=== PATIENT | female | born 1965 | race African-American/Black ===

== ENCOUNTER 2016-12-29 09:18 | Emergency (ER) | payer OTHER ==
[2016-12-29] MEDS ORDERED: NITROGLYCERIN 0.4MG SL TABLET #25 BTL SL PRN (09:44)
[2016-12-29] MEDS ORDERED: ASPIRIN 81 MG CHEWABLE TABLET PO ONE (09:44)
[2016-12-29 10:15] LABS: EOS % 4.2 % (0-6); GRAN % 49.1 % (47-80); HEMATOCRIT 42.5 % (35.0-47.0); HEMOGLOBIN 14.3 gm/dl (11.6-16.0); LYMPH % 36.7 % (16-45); MEAN CORPUSCULAR HEMOGLOBIN 29.6 pg (27-33); MEAN CORPUSCULAR HGB CONC 33.6 g/dl (32-36); MEAN PLATELET VOLUME 10.8 fl (7.4-10.4); PLATELET COUNT 265 K/uL (130-400); RED BLOOD COUNT 4.83 M/uL (3.80-5.40); RED CELL DISTRIBUTION WIDTH 14.7 % (11.5-14.5)
[2016-12-29 10:29] LABS: ANION GAP 9.7 (7-16); BLOOD UREA NITROGEN 11 mg/dL (7-17); CARBON DIOXIDE 28.3 mmol/L (22-30); CREATINE PHOSPHOKINASE 81 U/L (30-135); CREATININE 0.8 mg/dL (0.52-1.04); EST GLOMERULAR FILTRATION RATE > 60 ml/min; GLUCOSE,RANDOM 97 mg/dL (70-110)
[2016-12-29 10:41] LABS: CKMB 0.2 ug/L (0-6); TROPONIN I < 0.012 ng/mL (0.00-0.034)
--- NOTE | 2016-12-29 11:08 | Emergency Department Record ---
History of Present Illness - General Chief Complaint: Chest Pain Stated Complaint: CHEST PAIN Time Seen by Provider: 12/29/16 09:44 Source: Patient Mode of Arrival: Ambulatory Limitations: No limitations - History of Present Illness Initial Comments: pt has been having chest pain for the last 9 days. the pain gets worse with inspiration. pt flies a lot. she also feels sob. no leg pain. pt was on 2 courses of abx recently for uri. Complaint: Chest pain Onset/Timin -: Days(s) Onset: Other Pain Location: Left chest Severity: Moderate Quality: Sharp Consistency: Constant Improves With: Nothing Worsens With: Inspiration Context: Recent travel [place] Symptoms: Dyspnea Other Symptoms: Cough Treatments Prior to Arrival: None - Related Data Allergies Allergy/AdvReac Type Severity Reaction Status Date / Time tramadol Allergy Severe NAUSEA AND Verified 12/29/16 09:26 VOMITING tree nuts Allergy Severe ANAPHYLAXIS Uncoded 12/29/16 09:26 Travel Screening - Travel/Exposure Within Last 30 Days Have you traveled within the last 30 days?: No - Travel/Exposure Within Last Year Have you traveled outside the [place] in the last year?: No - Additonal Travel Details Have you been exposed to anyone with a communicable illness?: No Review of Systems Reviewed: No additional complaints except as noted below Constitutional: Reports: As per HPI. Denies: Chills, Fever, Malaise, Night sweats, Weakness, Weight change Eyes: Reports: As per HPI. Denies: Eye discharge, Eye pain, Photophobia, Vision change ENT: Reports: As per HPI. Denies: Congestion, Dental pain, Ear pain, Epistaxis , Hearing loss, Throat pain Respiratory: Reports: As per HPI. Denies: Cough, Dyspnea, Hemoptysis, Stridor, Wheezes Cardiovascular: Reports: As per HPI. Denies: Arrhythmia, Chest pain, Dyspnea on exertion, Edema, Murmurs, Orthopnea, Palpitations, Paroxysmal nocturnal dyspnea, Rheumatic Fever, Syncope Endocrine: Reports: As per HPI. Denies: Fatigue, Heat or cold intolerance, Polydipsia, Polyuria Gastrointestinal: Reports: As per HPI. Denies: Abdominal pain, Constipation, Diarrhea, Hematemesis, Hematochezia, Melena, Nausea, Vomiting Genitourinary: Reports: As per HPI. Denies: Abnormal menses, Discharge, Dyspareunia, Dysuria, Frequency, Hematuria, Incontinence, Retention, Urgency Musculoskeletal: Reports: As per HPI. Denies: Arthralgia, Back pain, Gout, Joint swelling, Myalgia, Neck pain Skin: Reports: As per HPI. Denies: Bruising, Change in color, Change in hair/ nails, Lesions, Pruritus, Rash Neurological: Reports: As per HPI. Denies: Abnormal gait, Confusion, Headache, Numbness, Paresthesias, Seizure, Tingling, Tremors, Vertigo, Weakness Psychiatric: Reports: As per HPI. Denies: Anxiety, Auditory hallucinations, Depression, Homicidal thoughts, Suicidal thoughts, Visual hallucinations Hematological/Lymphatic: Reports: As per HPI. Denies: Anemia, Blood Clots, Easy bleeding, Easy bruising, Swollen glands Past Medical History - SOCIAL HISTORY Smoking Status: Never smoker Alcohol Use: Occassional Drug Use: None - RESPIRATORY Hx Respiratory Disorders: Yes Comment:: gets really bad reaction to cats(allergies)- - CARDIOVASCULAR Hx Cardio Disorders: Yes Hx Hypertension: Yes Hx Palpitations: Yes (anxiety related- wore holter monitor -ok results) - NEURO Hx Neuro Disorders: No - GI Hx GI Disorders: Yes Hx Wt Loss/Wt Gain: Yes (20 lbs diet & exercise) - Hx Genitourinary Disorders: No Comment:: hyst - ENDOCRINE Hx Endocrine Disorders: Yes Hx Thyroid Disease: Yes (nodules on thyroid) Comment:: Dr cortez & observing - MUSCULOSKELETAL Hx Musculoskeletal Disorders: Yes Comment:: torn rotator cuff March 2015 - PSYCH Hx Psych Problems: Yes Hx Anxiety: Yes Hx Depression: Yes - HEMATOLOGY/ONCOLOGY Hx Hematology/Oncology Disorders: Yes Hx Cancer: Yes (precancerous cells left breast) Family Medical History Any Significant Family History?: No Hx Cancer: Mother *Cancer Comment: breast Hx Diabetes: Mother Hx HTN: Mother Hx Resp Disorders: Mother Physical Exam - General General Appearance: Alert, Oriented x3, Cooperative, Mild distress - Head Head exam: Normal inspection - Eye Eye exam: Normal appearance, PERRL, EOMI Pupils: Normal accommodation - ENT ENT exam: Normal exam, Mucous membranes moist, Normal external ear exam, Normal orophraynx Ear exam: Normal external inspection. negative: External canal tenderness Nasal Exam: Normal inspection. negative: Discharge, Sinus tenderness Mouth exam: Normal external inspection, Tongue normal Teeth exam: Normal inspection. negative: Dental caries Throat exam: Normal inspection. negative: Tonsillar erythema, Tonsillar exudate - Neck Neck exam: Normal inspection, Full ROM. negative: Tenderness - Respiratory Respiratory exam: Normal lung sounds bilaterally. negative: Respiratory distress - Cardiovascular Cardiovascular Exam: Regular rate, Normal rhythm, Normal heart sounds - GI/Abdominal GI/Abdominal exam: Soft, Normal bowel sounds. negative: Tenderness - Rectal Rectal exam: Deferred - exam: Deferred - Extremities Extremities exam: Normal inspection, Full ROM, Normal capillary refill. negative: Tenderness - Back Back exam: Reports: Normal inspection, Full ROM. Denies: Muscle spasm, Rash noted, Tenderness - Neurological Neurological exam: Alert, CN II-XII intact, Normal gait, Oriented X3 - Psychiatric Psychiatric exam: Normal affect, Normal mood - Skin Skin exam: Dry, Intact, Normal color, Warm Course Vital Signs 12/29/16 12/29/16 12/29/16 09:43 10:00 10:52 Temperature 98.4 F Pulse Rate [ 68 64 Pulse Ox Probe] Respiratory 16 16 16 Rate Blood Pressure 144/88 128/92 137/99 [Left Arm] Pulse Ox 99 98 98 - Reevaluation(s) Reevaluation #1: 12/29/16 11:32 ct neg except for thyroid nodules which pt already knows about Medical Decision Making - Lab Data Result diagrams: 12/29/16 09:40 12/29/16 09:40 Lab Results 12/29/16 12/29/16 Range/Units 09:40 09:40 WBC 4.0 L (4.2-12.2) K/uL RBC 4.83 (3.80-5.40) M/uL Hgb 14.3 (11.6-16.0) gm/dl Hct 42.5 (35.0-47.0) % MCV 88.0 (81-97) fl MCH 29.6 (27-33) pg MCHC 33.6 (32-36) g/dl RDW 14.7 H (11.5-14.5) % Plt Count 265 (130-400) K/uL MPV 10.8 H (7.4-10.4) fl Gran % 49.1 (47-80) % Lymphocytes % 36.7 (16-45) % Monocytes % 9.0 (0-9) % Eosinophils % 4.2 (0-6) % Basophils % 1.0 (0-6) % Sodium 143 (136-145) mmol/L Potassium 4.4 (3.5-5.1) mmol/L Chloride 105 (98-107) mmol/L Carbon Dioxide 28.3 (22-30) mmol/L Anion Gap 9.7 (7-16) BUN 11 (7-17) mg/dL Creatinine 0.8 (0.52-1.04) mg/dL Estimated GFR > 60 ml/min Random Glucose 97 (70-110) mg/dL Calcium 9.3 (8.5-10.1) mg/dL Creatine Kinase 81 (30-135) U/L CK-MB (CK-2) 0.2 (0-6) ug/L Troponin I < 0.012 (0.00-0.034) ng/mL Disposition Disposition: Discharge Clinical Impression: Chest pain Qualifiers: Chest pain type: chest pain on breathing Qualified Code(s): R07.1 - Chest pain on breathing Upper respiratory infection Qualifiers: URI type: unspecified viral URI Qualified Code(s): J06.9 - Acute upper respiratory infection, unspecified; B97.89 - Other viral agents as the cause of diseases classified elsewhere Disposition: Home, Self-Care Condition: (1) Good Instructions: Chest Pain (ED), Viral Syndrome (ED) Additional Instructions: follow up with family doctor. return sooner if worse. Forms: Patient Portal Access
[2016-12-29] MEDS ORDERED: MAGNESIUM HYDROXIDE/AL HYDROX 30 ML, LIDOCAINE VISC 2% 200 MG PO ONE ×2 (11:31)
--- NOTE | 2017-01-02 15:09 | CT ANGIOGRAM REPORT ---
EXAM: CTA OF THE CHEST HISTORY: FATIGUE. TECHNIQUE: CTA of the chest was performed following the IV administration of 76 ml of Omnipaque 350 contrast. Axial images were obtained with coronal and sagittal MIP reconstructions. Comparison: None. FINDINGS: Nodular appearance to the visualized thyroid gland. The mediastinal vasculature enhances normally. There is no intraluminal filling defect to suggest pulmonary embolus. Negative for thoracic aortic aneurysm or dissection. Small hiatal hernia. No mediastinal or hilar adenopathy. The heart and pericardium are unremarkable. Limited evaluation of the upper abdomen is unremarkable. The osseous structures are grossly intact. There is no pneumothorax. The visualized airways are patent. The lungs are clear. IMPRESSION: 1. NEGATIVE FOR AN ACUTE INTRATHORACIC PROCESS. 2. NODULAR APPEARANCE TO THE THYROID GLAND. JOB NUMBER: [id number] [facility]
== END 2016-12-29 11:50 | disposition home or self-care (01) ==
LOC: ER 09:18
DX: R07.1 Chest pain on breathing (principal); R06.02 Shortness of breath; E04.1 Nontoxic single thyroid nodule; I10 Essential (primary) hypertension
CPT/HCPCS: 99284 ×2; 82550; 85025; 82553; 84484; 80048; 71275; 93005; 93010; Q9967

== ENCOUNTER 2018-07-26 14:17 | Emergency (ER) | payer OTHER ==
[2018-07-26] MEDS ORDERED: IBUPROFEN 400 MG TABLET PO ONE (14:30)
--- NOTE | 2018-07-26 14:35 | Emergency Department Record ---
History of Present Illness - General Chief complaint: Flank Pain Stated complaint: FLANK PAIN Time Seen by Provider: 07/26/18 14:22 Source: Patient Mode of Arrival: Ambulatory Limitations: No limitations - History of Present Illness Initial comments: The patient is here due to a 2-3 day hx of intermittent R flank pain. It is a sharp stabbing pain that is worse with movement and twisting. She has had mild nausea with it but no vomiting, fever, AP, dysuria or hematuria. The patient did go to the for it today where she had her urine dipped pos for blood. Due to the possibility of a kidney stone she was sent to the ER for a CT. The patient has no hx of stones and also denies any trauma. MD Complaint: Other Onset/Timin -: Days(s) Location: Other Radiation: R flank Severity: Mild Severity scale (1-10): 4 Quality: Burning, Dull Consistency: Intermittent Improves with: None Worsens with: Movement Patient : No Associated Symptoms: Denies other symptoms - Related Data Home Medications Medication Instructions Recorded Confirmed Last Taken Hydrochlorothiazide [Hctz] 1 tab PO DAILY 07/26/18 07/26/18 07/26/18 Previous Rx's Medication Instructions Recorded Ondansetron [Zofran Odt] 4 mg SL .Q4-6H PRN #10 tab.rapdis 07/26/18 Allergies Allergy/AdvReac Type Severity Reaction Status Date / Time tramadol Allergy Severe NAUSEA AND Verified 07/26/18 14:25 VOMITING tree nuts Allergy Severe ANAPHYLAXIS Uncoded 12/29/16 09:26 Travel Screening - Travel/Exposure Within Last 30 Days Have you traveled within the last 30 days?: No - Travel/Exposure Within Last Year Have you traveled outside the [place] in the last year?: No - Additonal Travel Details Have you been exposed to anyone with a communicable illness?: No - Travel Symptoms Symptom Screening: None Review of Systems Constitutional: Denies: Chills, Fever Eyes: Denies: Eye discharge Respiratory: Denies: Cough, Dyspnea Past Medical History - SOCIAL HISTORY Smoking Status: Never smoker Alcohol Use: Occasional Drug Use: None - RESPIRATORY Hx Respiratory Disorders: Yes Comment:: gets really bad reaction to cats(allergies)- - CARDIOVASCULAR Hx Cardio Disorders: Yes Hx Hypertension: Yes Hx Palpitations: Yes (anxiety related- wore holter monitor -ok results) - NEURO Hx Neuro Disorders: No - GI Hx GI Disorders: Yes Hx Wt Loss/Wt Gain: Yes (20 lbs diet & exercise) - Hx Genitourinary Disorders: No Comment:: hyst - ENDOCRINE Hx Endocrine Disorders: Yes Hx Thyroid Disease: Yes (nodules on thyroid) Comment:: Dr cortez & observing - MUSCULOSKELETAL Hx Musculoskeletal Disorders: Yes Comment:: torn rotator cuff March 2015 - PSYCH Hx Psych Problems: Yes Hx Anxiety: Yes Hx Depression: Yes - HEMATOLOGY/ONCOLOGY Hx Hematology/Oncology Disorders: Yes Hx Cancer: Yes (precancerous cells left breast) Family Medical History Any Significant Family History?: Yes Hx Cancer: Mother *Cancer Comment: breast Hx Diabetes: Mother Hx HTN: Mother Hx Resp Disorders: Mother Physical Exam - General General Appearance: Alert, Oriented x3, Cooperative, No acute distress (The patient is very pleasant and comfortable at this time and in no distress.) - Head Head exam: Atraumatic, Normocephalic, Normal inspection - Neck Neck exam: Normal inspection, Full ROM. negative: Tenderness - Respiratory Respiratory exam: Normal lung sounds bilaterally. negative: Respiratory distress - Cardiovascular Cardiovascular Exam: Regular rate, Normal rhythm, Normal heart sounds - GI/Abdominal GI/Abdominal exam: Soft, Tenderness (There is mild R mid tenderness to palpation. ). negative: Distended, Rebound, Rigid - Extremities Extremities exam: Normal inspection, Full ROM, Normal capillary refill. negative: Tenderness - Back Back exam: Reports: Normal inspection, Paraspinal tenderness (The pain is very reproducible to palpation over the R L2-4 paraspinal area.). Denies: Vertebral tenderness Image of Body Front/Back: 1 - Area of pain and tenderness. Course Vital Signs 07/26/18 14:20 Temperature 97.9 F Pulse Rate 67 Respiratory 18 Rate Blood Pressure 140/97 Pulse Ox 97 - Reevaluation(s) Reevaluation #1: The patient is doing well and is only having mild pain. She does not want any medicine for it. I did discuss the lab results and the CT results which basically demonstrate normal findings. I did discuss the mildly elevated potassium but believe that is probably a false positive due to the patient having normal kidney function and taking HCTZ. She is to take her home OTC pain meds and is to use Zofran for nausea. She is to see her PCP next week for recheck and to have the potassium rechecked. 07/26/18 15:30 Medical Decision Making - Data Complexity MDM Data: Labs Ordered and/or Reviewed, X-Ray Ordered and/or Reviewed - Lab Data Result diagrams: 07/26/18 14:40 07/26/18 14:40 - Radiology Data Radiology results: Report reviewed (Abd/pelvis CT: Neg for any acute changes.) Disposition Disposition: Discharge Clinical Impression: Flank pain Disposition: Home, Self-Care Condition: (2) Stable Instructions: Flank Pain (ED) Additional Instructions: Please take your home pain medicines if needed and use the Zofran for nausea. Please see your family doctor for recheck early next week and to have the potassium rechecked. Return to the ER sooner for any worsening pain, fever, vomiting, or diarrhea. Prescriptions: Ondansetron [Zofran Odt] 4 mg SL .Q4-6H PRN #10 tab.rapdis PRN Reason: Nausea Forms: Patient Portal Access Time of Disposition: 15:33 Quality - Quality Measures Quality Measures: N/A - Blood Pressure Screening View Details: Yes Does Patient Have Any of the Following: No Blood Pressure Classification: Pre-Hypertensive BP Reading Systolic Measurement: 130 Diastolic Measurement: 80 Screening for High Blood Pressure: < Pre-Hypertensive BP, F/U Documented > [ [id number]] Pre-Hypertensive Follow-up Interventions: Referral to alternative/primary care provider.
[2018-07-26 14:47] LABS: URINE APPEARANCE CLEAR; URINE BILIRUBIN NEGATIVE (NEGATIVE); URINE BLOOD SMALL (NEGATIVE); URINE COLOR YELLOW; URINE GLUCOSE (UA) NEGATIVE (NEGATIVE); URINE KETONE TRACE (NEGATIVE); URINE LEUKOCYTE ESTERASE NEGATIVE (NEGATIVE); URINE NITRITE NEGATIVE (NEGATIVE); URINE PROTEIN NEGATIVE (NEGATIVE); URINE UROBILINOGEN 0.2 E.U./dL (0.20 - 1.00)
[2018-07-26 14:47] LABS: BASO % 0.4 % (0-6); EOS % 3.2 % (0-6); GRAN % 61.2 % (47-80); HEMATOCRIT 41.9 % (35.0-47.0); HEMOGLOBIN 13.8 gm/dl (11.6-16.0); LYMPH % 26.3 % (16-45); MEAN CELL VOLUME 88.4 fl (81-97); MEAN CORPUSCULAR HEMOGLOBIN 29.1 pg (27-33); MEAN CORPUSCULAR HGB CONC 32.9 g/dl (32-36); MEAN PLATELET VOLUME 10.2 fl (7.4-10.4); MONO % 8.9 % (0-9); PLATELET COUNT 279 K/uL (130-400); RED BLOOD COUNT 4.74 M/uL (3.80-5.40); RED CELL DISTRIBUTION WIDTH 14.6 % (11.5-14.5); WHITE BLOOD COUNT W/O DIFF 5.6 K/uL (4.2-12.2)
[2018-07-26 14:56] LABS: URINE AMORPHOUS SEDIMENT 1+; URINE WBC NONE SEEN (0-2/hpf)
[2018-07-26 15:00] LABS: BLOOD UREA NITROGEN 15 mg/dL (6-20); EST GLOMERULAR FILTRATION RATE > 60 mL/min
[2018-07-26 15:01] LABS: TOTAL PROTEIN 7.9 g/dL (6.6-8.7)
[2018-07-26 15:03] LABS: GLUCOSE,RANDOM 96 mg/dL (74-109)
[2018-07-26 15:05] LABS: ALT/SGPT 15 U/L (<33); AST/SGOT 23 U/L (10.0-35.0)
[2018-07-26 15:06] LABS: ALBUMIN 4.6 g/dL (4.0-5.0); ALKALINE PHOSPHATASE 84 U/L (35-104); BILIRUBIN,DIRECT < 0.2 mg/dL (0-0.3)
--- NOTE | 2018-07-28 19:14 | CT SCAN REPORT ---
EXAM: CT SCAN ABDOMEN/PELVIS WO CONTRAST HISTORY: RIGHT FLANK PAIN WITH MICROHEMATURIA AND BACTERIA. SURGICAL HISTORY OF PRIOR HYSTERECTOMY AND PARTIAL OOPHORECTOMY. TECHNIQUE: Noncontrast CT of the abdomen and pelvis. COMPARISON: None. FINDINGS: Mild dependent lower lobe atelectasis bilaterally. Unremarkable noncontrast appearance of the liver, gallbladder, spleen, adrenal glands, and pancreas. No hydronephrosis. No calculi detected in the kidneys, ureters, or urinary bladder. Urinary bladder is mildly distended, question minimal diffuse wall thickening. No focal colonic thickening or inflammatory changes. Noninflamed appendix in the right lower quadrant. Stomach and small bowel are nondilated. No free air, no free fluid. Uterus appears surgically absent. Abdominal aorta appears nondilated. No definite acute osseous findings. IMPRESSION: 1. NO EVIDENCE OF UROLITHIASIS OR OBSTRUCTIVE UROPATHY. 2. MINIMALLY THICKENED APPEARANCE OF THE URINARY BLADDER SOLIMAN, WHICH MAY BE RELATED TO BLADDER UNDER-DISTENTION VS. PROCESS SUCH CYSTITIS. CORRELATION IS RECOMMENDED. JOB NUMBER: [id number] [facility]
== END 2018-07-26 15:39 | disposition home or self-care (01) ==
LOC: ER 14:17
DX: R10.819 Abdominal tenderness, unspecified site (principal); R31.29 Other microscopic hematuria; R11.0 Nausea; M54.5 Low back pain; I10 Essential (primary) hypertension
CPT/HCPCS: 74176; 80048; 80076; 81001; 85025; 99283; 99284